=== PATIENT | female | born 2000 | race African-American/Black ===

== ENCOUNTER 2021-07-23 22:46 | Emergency (ER) | payer MEDICAID, SELFPAY ==
[2021-07-23 22:47] VITALS: BP 152/76; PULSE 101; RESP 18; TEMP 36; O2SAT 98; BMI 38.8
--- NOTE | 2021-07-23 22:59 | US_ITS ---
STUDY: FIRST TRIMESTER OBSTETRICAL ULTRASOUND REASON FOR EXAM: Female, 21 years old 6 weeks, bleeding, cramps LMP: 06/09/2021 TECHNIQUE: Transvaginal TECHNICAL QUALITY: Adequate. PRIOR ULTRASOUND: None. FINDINGS: There is visualization of a single gestational sac in a normal intrauterine position. The mean sac diameter (MSD) measures 1.4 cm, indicating an estimated gestational age (EGA) of 6 weeks, 1 days. The gestational sac shape is within normal limits. There is a visualized yolk sac. The yolk sac measures 3.4 mm. The placenta is non-visualized. There is visualization of a live embryo. The crown-rump length (CRL) measures 3.2 mm, indicating an estimated gestational age (EGA) of 6 weeks, 1 days. There is demonstrated cardiac activity with a heart rate of 119 bpm. The estimated gestation age (EGA) by LMP is weeks, days. The estimated date of delivery (RYDER) by LMP is . Unremarkable uterus and ovaries. Small septated right ovarian cysts follicle There is minimal fluid in the cul de sac. US/Transvaginal w/Preg US IMPRESSION: Single live early IUP as detailed above Electronically Signed: Rob Mcgrath DO at 0:30 EST Tel , Service support ,
--- NOTE | 2021-07-23 23:01 | ED.VIS.FEGU ---
HPI HPI - Female History of Present Illness Chief Complaint: Vag Bld, Preg Informant: patient Narrative Narrative: Patient presents with vaginal bleeding, and mild occasional cramp. This is a G2, P1 female last menstrual period 09 June 2021. States she is approximately 6 weeks gestation. She has had multiple positive test. No physician visit no ultrasound. She states she has had a small amount of blood when wiping. This is much less than a menstrual cycle but more than just a spot or 2 on the tissue. No clots or tissue seen. She states occasionally feet she feels a little pressure in the suprapubic area but it is small amount and just occasional. She denies urinary symptoms. Nothing specifically changes her complaints or symptoms in any way. Nothing makes them better or worse. No past medical history, no history of ovarian cysts. No medications No medical allergies but she is allergic to peanuts. No abdominal surgeries Lives independently non-smoker. PFSH PFSH Allergy/AdvReac Type Severity Reaction Status Date / Time peanut Allergy Itching Verified 07/23/21 22:50 ROS ROS ED Constitutional Constitutional ED: Denies chills or fever(s) ENT ENT ED: Denies rhinorrhea or sore throat Cardiovascular Cardiovascular: Denies chest pain Respiratory/Chest Respiratory/Chest: Denies cough or dyspnea Gastrointestinal Gastrointestinal: Reports abdominal pain; Denies constipation, diarrhea, melena, nausea or vomiting Genitourinary Genitourinary ED: Reports other Details: See history of present illness. ; Denies dysuria, hematuria or urinary frequency Musculoskeletal Musculoskeletal: Denies myalgias Integumentary Denies rash Neurologic Neurologic: Denies headache(s) Endocrine Endocrinology: Denies polydipsia or polyuria Hematologic/Lymphatic Hematologic/Lymphatic: Denies easy bleeding or easy bruising Allergic/Immunologic Allergic/Immunologic ED: Denies mouth swelling or urticaria EXAM Physical Exam Const Vital Signs: 07/23/21 22:47 Temperature 96.8 F L Temperature Source Temporal Pulse Rate 101 H Respiratory Rate 18 Blood Pressure 152/76 H Blood Pressure Mean 101 Pulse Ox 98 Oxygen Delivery Method Room Air Positive well nourished and well developed General Appearance ED: well developed and NAD HEENT Reports moist mucous membranes Eyes General Eye ED: Negative for pale conjunctiva or scleral icterus Neck no JVD Resp normal respiratory effort and clear to auscultation bilaterally Cardio regular rate, regular rhythm and no murmurs GI normal to inspection, nondistended, normoactive bowel sounds, soft to palpation, non-tender and non-distended no CVA tenderness Back/Spine no CVA tenderness Extremity normal to inspection General Extremety ED: Negative for edema General Extremity: Negative for edema Neuro oriented x3 Sensorium / Orientation: alert Psych mental status grossly normal Skin no rashes or lesions noted Discharge Plan Triage Chief Complaint: Vag Bld, Preg ED Provider: Smooth Rodriguez Dx/Rx/DC Orders Primary Care Provider: Care Physician,No Primary
[2021-07-23 23:32] LABS: Absolute Neutrophil Count 4.8 X10^3/uL (2.0-7.7); Basophil# 0.07 X10^3/uL; Basophil% 0.8 % (0-1); Eosinophil# 0.18 X10^3/uL; Eosinophils% 2.1 % (0-5); Hematocrit 37.5 % (37-47); Hemoglobin 11.8 g/dL (12.0-15.0); Mean Corp Hgb Conc 31.5 g/dL (32-36); Mean Corpuscular Hgb 26.2 pg (27.0-32.0); Mean Corpuscular Volume 83.1 fL (81-99); Mean Platelet Vol. 10.1 fl (6.2-12.0); Monocyte# 0.89 X10^3/uL; Monocyte% 10.2 % (0-10); NRBC Flagged by Analyzer 0 % (0-5); Neutrophil # 4.76 X10^3/uL (2.7-7.7); Neutrophil % 54.8 % (47-70); Platelet Count 297 K/mm3 (150-450); RBC Distribution Width CV 13.2 % (11.6-14.6); RBC Distribution Width SD 40.1 fl (35.1-43.9); Red Blood Count 4.51 M/mm3 (4.2-5.4); White Blood Count 8.7 K/mm3 (4.4-11.0)
[2021-07-23 23:58] LABS: hCG Titer Quant., Serum 15872 mIU/mL (1-3)
[2021-07-24 00:24] LABS: Bacteria 0 SEEN /hpf (None Seen); Mucous, Urine 0 SEEN /hpf (<or=2+); Squamous Epithelial Cells - UA 0 SEEN /hpf (5-10); White Blood Cells 0 SEEN /hpf (0-5)
[2021-07-24 00:25] LABS: Color, Urine Yellow (Yellow); Glucose, Dipstick Normal (Normal); Ketone-Dipstick Negative (Negative); Leukocyte Esterase-Dipstick Negative /ul (Negative); Nitrite-Dipstick Negative (Negative); Occult Blood-Urine 25 /ul (Negative); Protein-Dipstick Negative (Negative); Specific Gravity, Urine 1.015 (1.002-1.030); Urine Bilirubin Dipstick Negative (Negative); Urine Clarity Clear (Clear); Urine Urobilinogen Normal (Normal); Urine pH 6.5 (5.0 - 8.0)
[2021-07-24 00:32] LABS: Red Blood Cells-Urine 0-5 SEEN /hpf (0-5)
[2021-07-24 00:59] VITALS: RESP 16
== END 2021-07-24 00:59 | disposition home or self-care (01) ==
PROVIDERS: Emergency Provider Emergency Medicine
DX: O20.9 Hemorrhage in early pregnancy, unspecified (principal); Z3A.01 Less than 8 weeks gestation of pregnancy
CPT/HCPCS: 76817; 81001; 84702; 85025; 99282

== ENCOUNTER → 2021-07-26 11:58 | Outpatient (CLI) | payer MEDICAID, SELFPAY | PROVIDERS: Referring Provider Emergency Medicine; Visit Provider Emergency Medicine | DX: O20.9 Hemorrhage in early pregnancy, unspecified (principal); Z3A.01 Less than 8 weeks gestation of pregnancy | CPT/HCPCS: 36415; 84702; 86900; 86901 ==